=== PATIENT | female | born 1975 | race American Indian/Alaskan Native ===

== ENCOUNTER 2017-09-28 16:41 | Emergency (ER) | payer SELFPAY ==
[2017-09-28 16:55] VITALS: BP 146/92
[2017-09-28 17:38] LABS: Anion Gap 22 mmol/L; BUN/Creatinine Ratio 10; Blood Urea Nitrogen 6 mg/dL (7-17); Calcium 9.3 mg/dL (8.4-10.2); Carbon Dioxide 19 mmol/L (22-30); Chloride 102.6 mmol/L (98-107); Glucose 98 mg/dL (65-100); Potassium 4.2 mmol/L (3.6-5.0); Sodium 139 mmol/L (137-145)
--- NOTE | 2017-09-28 17:44 | XRay Report ---
FINAL REPORT PROCEDURE: XR CHEST ROUTINE 2V TECHNIQUE: PA and lateral chest radiographs were obtained. CPT 66580 HISTORY: Shortness of breath COMPARISON: No prior studies are available for comparison. FINDINGS: Heart: Normal. Mediastinum/Vessels: Normal. Lungs/Pleural space: No infiltrate, effusion, or pneumothorax. Bony thorax: No acute osseous abnormality. Other: IMPRESSION: No pulmonary infiltrates are identified.
[2017-09-28 17:45] LABS: Mean Corpuscular HGB Conc 28 % (30-34); Platelet Count 226 K/mm3 (140-440); Red Blood Count 4.33 M/mm3 (3.65-5.03); White Blood Count 7.2 K/mm3 (4.5-11.0)
[2017-09-28 17:46] LABS: Hematocrit 27.9 % (30.3-42.9); Hemoglobin 7.8 gm/dl (10.1-14.3); Mean Corpuscular Hemoglobin 18 pg (28-32); Mean Corpuscular Volume 65 fl (79-97); Red Cell Distribution Width 21.1 % (13.2-15.2)
[2017-09-28 18:17] LABS: Basophils % (Manual) 0 % (0.0-1.8); Blastocytes % (Manual) 0 %
[2017-09-28 18:19] LABS: Microcytosis 3+
[2017-09-28 18:20] LABS: Anisocytosis 2+; Hypochromasia 3+; Poikilocytosis 1+
[2017-09-28 18:21] LABS: Polychromasia Few; Target Cells Few; Tear Drop Cells Few
[2017-09-28 18:22] LABS: Diff Status Complete; Large Platelets 1+; Platelet Estimate Appe
== END 2017-09-29 03:15 | disposition left against medical advice (07) ==
LOC: ED 16:41
DX: Z53.21 Procedure and treatment not carried out due to patient leaving prior to being seen by health care provider (principal)
CPT/HCPCS: 36415; 71020; 80048; 84484; 85007; 85025; 93005; 93010; 99284